=== PATIENT | female | born 1965 | race Caucasian/White ===

== ENCOUNTER 2017-10-23 09:55 | Emergency (ER) | payer BC ==
[~2017-10-23] VITALS: Ht 167.6 cm; Wt 99.8 kg
[2017-10-23] MEDS ORDERED: ATOR40TA PO (10:05)
[2017-10-23] MEDS ORDERED: VENL150ER PO (10:06)
[2017-10-23] MEDS ORDERED: Glucophage1000 MG PO (10:07)
[2017-10-23] MEDS ORDERED: ZESTORETIC 20-121 EA PO (10:07)
[2017-10-23] MEDS ORDERED: CYCL10 PO ×2 (10:08→10:36)
[2017-10-23] MEDS ORDERED: LORA.5 PO (10:09)
[2017-10-23] MEDS ORDERED: Prednisone50 MG PO (10:36)
== END 2017-10-23 11:12 | disposition home or self-care (01) ==
LOC: ER 09:55
DX: M54.16 Radiculopathy, lumbar region (principal); E11.9 Type 2 diabetes mellitus without complications; I10 Essential (primary) hypertension; F41.9 Anxiety disorder, unspecified; Z79.899 Other long term (current) drug therapy; Z79.84 Long term (current) use of oral hypoglycemic drugs; Z87.891 Personal history of nicotine dependence
CPT/HCPCS: 96372; 99283; J1885